=== PATIENT | male | born 1960 | race Caucasian/White ===

== ENCOUNTER 2019-12-17 04:06 | Inpatient (IN) | payer MEDICAID ==
[2019-12-17] VITALS (16 sets, daily range): BP systolic 127–164; BP diastolic 62–102
[~2019-12-17] VITALS: Ht 175.3 cm; Wt 132.0 kg
[~2019-12-17 04:06] MED LIST: ARMOUR THYROID300 MG; CONSTULOSE10 GM/152; FUROSEMIDE 40 M40 MG PO; GENERLAC; GLUCOPHAGE XR500 MG; K-DUR10 ME1; LANTUS100 UNIT/M SUBQ; NOVOLOG100 UNIT/1 SUBQ; OXYCODONE HCL20 M1 PO; OXYCODONE HCL5 M1; PEGASYS180 MCG/1; PRILOSEC 20 MG20 MG PO; REBETOL200 MG; SPIRONOLACTONE50 MG PO; SYNTHROID175 MCG PO; TOPROL XL25 MG; ZOFRAN ODT4 MG DISSOLVE
[2019-12-17 04:50] LABS: ABSOLUTE EOSINOPHILS 0.1 thou/uL (0.0-0.7); ABSOLUTE LYMPHOCYTES 0.8 thou/uL (0.8-5.3); ABSOLUTE MONOCYTES 0.4 thou/uL (0.0-1.2); ABSOLUTE NEUTROPHILS 2.3 thou/uL (1.6-8.1); EOSINOPHILS 3.3 %; HEMATOCRIT 41.4 % (42.0-52.0); LYMPHOCYTES 20.8 %; MCH 32.2 pg (26.0-34.0); MCHC 33.9 g/dL (28.0-37.0); MCV 95.1 fL (80.0-100.0); MONOCYTES 10.9 %; MPV 8.5 fl. (7.2-11.1); NUCLEATED RBCS 0 /100WBC; PLATELET COUNT* 112 thou/uL (150-400); RBC 4.36 mil/uL (4.50-6.00); RDW-CV 15.3 % (10.5-14.5); WBC 3.7 thou/uL (4.0-11.0)
[2019-12-17 05:02] LABS: PROTIME 10.2 Seconds (9.20-11.50)
[2019-12-17 05:12] LABS: CALCIUM 8.4 mg/dL (8.5-10.1); CREATININE 1.2 mg/dL (0.6-1.3); POTASSIUM 4.3 mmol/L (3.5-5.1)
[2019-12-17 05:19] LABS: ALBUMIN 3.1 g/dL (3.4-5.0); MAGNESIUM 1.9 mg/dL (1.8-2.4); TOTAL BILIRUBIN 0.5 mg/dL (<0.1-1.0); TOTAL PROTEIN 7.1 g/dL (6.4-8.2)
[2019-12-17] MEDS ORDERED: EZALLOR SPRINKL20 MG PO (05:23)
[2019-12-17] MEDS ORDERED: HORIZANT600 MG PO (05:23)
[2019-12-17] MEDS ORDERED: LINZESS145 MCG PO (05:23)
[2019-12-17] MEDS ORDERED: FUROSEMIDE 20 M20 MG PO (05:24)
[2019-12-17] MEDS ORDERED: METHOCARBAMOL750 MG PO (05:24)
[2019-12-17] MEDS ORDERED: XIFAXAN550 M1 PO (05:25)
[2019-12-17] MEDS ORDERED: VICTOZA0.6 MG/0.1 SUBQ (05:26)
[2019-12-17] MEDS ORDERED: KRISTALOSE20 GM PO (05:26)
[2019-12-17] MEDS ORDERED: ROXICODONE5 MG PO (08:07)
--- NOTE | 2019-12-17 10:57 | EKG ---
[place] [address] ELECTROCARDIOGRAM REPORT Name: ANIYAH SCHMIDTVIN Room: [address] ADM IN M.R.#: [id number] Admission: 12/17/19 Attend Phys: Jason Epstein, Discharge: Date of : 58 Date of Service: 12/17/19 0410 Report #: [id number] THIS REPORT FOR: //name// [facility] ED Test Date: 2019-12-17 Test Time: 04:10:26 Pat Name: VIANNEY SCHMIDT Department: Room: [facility] Gender: M Superintendent Schools: RIA : 1960 Requested By: Marika Renae Order Number: [id number] MD: Cy Hook Measurements Intervals [place] Rate: 76 P: 38 AR: 174 QRS: -61 QRSD: 102 T: 16 QT: 400 QTc: 450 Interpretive Statements Sinus rhythm Left anterior fascicular block Probable anteroseptal infarct, old Baseline wander in lead(s) II,III,aVF No previous ECG available for comparison Electronically Signed On 12-17-2019 10:56:17 CDT by Cy Hook [email or web address] <ELECTRONICALLY SIGNED> By: Cy Hook MD, [facility] 12/17/19 1056 0410 0410 Cy Hook MD, [facility] /EPI
--- NOTE | 2019-12-17 13:37 | CARD ---
[address] [address] CARDIAC CATH REPORT Name: VIANNEY SCHMIDT Room: [facility] IN ..#: [id number] Admission: 12/17/19 Attend Phys: Jason Epstein MD Discharge: Date of : 58 Report #: [id number] THIS REPORT FOR: //name// cc: ROMÁN Grigsby family physician/PCP ROMÁN Grigsby family physician/PCP ~ APPROVED REPORT Study performed: 12/17/2019 10:43:38 Patient Details Patient Status: In-Patient Room #: 228 The patient is a 59 year-old male Event Personnel Cy Hook Science Interpreter, Rosalino Mehta RN Financial Assistance Advisor, Dwain Barrera Monitor, Víctor Jacobs RTR Scrub Procedures Performed cardiac cath Indication Chest pain Risk Factors Obesity, Diabetes Procedure Narrative The patient was brought electively to the Cardiac Catheterization Laboratory and was prepped and draped in a sterile manner. The right wrist was infiltrated with 1% Lidocaine subcutaneous anesthesia. A Slender Glidesheath sheath was inserted into the RRA. Coronary angiography was performed using coronary diagnostic catheters. The right coronary system was accessed and visualized with a JR4 catheter. The left coronary system was accessed and visualized with a JL4.0 catheter. The left ventricle was accessed and visualized with a Angled PIG catheter. Left ventriculogram was performed in CRUZ projection. Closure device was deployed with a 6 Fr Vasc-Band XLng 29cm. The patient tolerated the procedure well and there were no complications associated with the procedure. There was no hematoma. Intraoperative Conscious Sedation Sedation start time: 1144 Case end Time: 1209 Fluoro Time: 4.5 [place] [address] CARDIAC CATH REPORT Name: BRAYANVIANNEY Room: [address] IN [facility]#: [id number] Admission: 12/17/19 Attend Phys: Jason Epstein MD Discharge: Date of : 58 Report #: [id number] Dose: DAP 1133 cGycm2 65.8 mGy Contrast Type and Amount: Visipaque 70 ml Coronary Angiography The patient's coronary anatomy is co- dominant. [place] Artery Percent Stenosis Left Main: 0 % Prox LAD: 0 % Mid/Distal LAD: 30 % Circumflex: 0 % RCA: 30 % Ramus: % Left Ventriculography The left ventricular ejection fraction is estimated to be 60-65%. Left ventricular wall motion abnormalities are not present. There is no mitral insufficiency. Hemodynamics The aortic pressure is 119/55 mmHg with a mean of 81 mmHg. The left ventricular pressure is 126/10 mmHg with a mean of mmHg. The left ventricular end diastolic pressure is 14 mmHg. There was no gradient across the aortic valve upon pullback. Pullback from the left ventricle to the aorta revealed no gradient across the aortic valve. Conclusion 1. minimal cad noted 2. LVEF 60-65% 3. suspect noncardiac chest pain Recommendations Aggressive Medical Therapy <ELECTRONICALLY SIGNED> By: Cy Hook MD, [facility] 12/17/195 34 34Damichael Hook MD, [facility] /INF
--- NOTE | 2019-12-17 15:17 | CON ---
[address] [address] CONSULTATION Name: VIANNEY SCHMIDT Room: [address] IN M.R.#: [id number] Admission: 12/17/19 Attend Phys: Jason Epstein MD Discharge: Date of : 58 Report #: [id number] THIS REPORT FOR: //name// cc: ROMÁN Grigsby family physician/PCP ROMÁN - Calista family physician/PCP ~ THIS REPORT FOR: //name// CC: ROMÁN physician/PCP Jason Epstein DATE OF SERVICE: 12/17/2019 CARDIOLOGY CONSULTATION HISTORY OF PRESENT ILLNESS: The patient is a 59-year-old white male who I was asked to see in the hospital today after he complained of chest pain. The patient states that he was at a construction site years ago in [place], [place] and told he had a heart attack. He had a heart catheterization, apparently no stents were placed. He has also had a heart catheterization at [facility]. Again, no stents were placed. He is not very active at this time. He was doing well until this morning. He was at home and vacuuming. He then felt short of breath with some chest tightness and left arm pain. He took a nitroglycerin that seemed to help. His drove him to the hospital and he was admitted for further evaluation and treatment. He denied the pain being related to food. He has had no fever, cough, bleeding. Denied trauma to his chest. He does get short of breath when he exerts himself. He has had no palpitations or syncope. He does have chronic edema. PAST MEDICAL HISTORY: He has had a cholecystectomy, appendectomy. He has a history of cirrhosis, was treated for hepatitis C in the past. He has a history of diabetes. He has a diagnosis of neuropathy. MEDICATIONS: Consist of spironolactone, Synthroid, insulin, Crestor, Neurontin, Lasix, Victoza. ALLERGIES: He has no known drug allergies. FAMILY HISTORY: His mother had heart disease. SOCIAL HISTORY: He is . He and his live in [place], [place]. 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 He has a history of smoking. He is now using Chantix in an effort to stop smoking. Drinks beer occasionally. REVIEW OF SYSTEMS: He is overweight, 5 feet 9 inches, and 260 pounds. He denies snoring at night. No history of stroke, kidney disease, peptic ulcer in the past. No cancer. [place] [address] CONSULTATION Name: VIANNEY SCHMIDT Room: [address] IN [facility]#: [id number] Admission: 12/17/19 Attend Phys: Jason Epstein MD Discharge: Date of : 58 Report #: [id number] PHYSICAL EXAMINATION: GENERAL: Revealed a large middle-aged male, lying in bed, appeared in no acute distress. VITAL SIGNS: He had a blood pressure 120/80, pulse 70, he is afebrile. HEENT: He was anicteric. Conjunctivae are pink. Mucous membranes moist. NECK: Veins do not appear distended. No carotid bruits. CHEST: Clear to auscultation. CARDIOVASCULAR: Regular rate and rhythm. No murmur. ABDOMEN: Obese. EXTREMITIES: Had trace edema. Dorsalis pedis pulse 2+ bilaterally. SKIN: Warm and dry. NEUROLOGIC: Nonfocal. PSYCHIATRIC: Mood is appropriate. LABORATORY DATA: His ECG done in the Emergency Room shows sinus rhythm, left anterior fascicular block, evidence of previous anterior infarction. His chest x-ray, cardiomegaly, clear lung quezada. Sodium 135, BUN 14, creatinine 1.2. His troponin 0.06. White blood cell count 3.7 and hemoglobin 14. IMPRESSION AND RECOMMENDATIONS: 1. Unstable angina. Previous coronary artery disease. Recommend cardiac catheterization. 2. Diabetes. 3. Hyperlipidemia. The patient is on a statin drug. 4. History of hepatitis C and cirrhosis. The patient followed by GI. 5. Previous tobacco abuse. 6. Obesity. 7. Neuropathy. 8. Previous peptic ulcer disease with previous surgery. <ELECTRONICALLY SIGNED> By: Cy Hook MD, FACC 12/17/19 1517 0930 [id number] Hook MD, FACC /nt
[2019-12-18] VITALS: BP 129/80
[2019-12-18 04:00] VITALS: BP 143/78
[2019-12-18 08:00] VITALS: BP 144/72
[2019-12-18] MEDS ORDERED: PAIN RELIEVER500 MG PO (10:15)
[2019-12-18] MEDS ORDERED: NEURONTIN600 MG PO (10:15)
[2019-12-18] MEDS ORDERED: KEFLEX500 M1 PO (10:15)
[2019-12-18] MEDS ORDERED: ROXICODONE15 M1 PO (10:15)
[2019-12-18 10:57] VITALS: BP 144/72
== END 2019-12-18 12:47 | disposition home or self-care (01) | DRG 287 ==
LOC: M.ERS 04:06 → M.TBA-ER 06:15 → M.2W 08:31
PROVIDERS: Emergency Medicine; ADMIT Internal Medicine
DX: I25.110 Atherosclerotic heart disease of native coronary artery with unstable angina pectoris (principal); L03.119 Cellulitis of unspecified part of limb; Z68.41 Body mass index [BMI] 40.0-44.9, adult; K74.60 Unspecified cirrhosis of liver; F32.9 Major depressive disorder, single episode, unspecified; I50.9 Heart failure, unspecified; E11.42 Type 2 diabetes mellitus with diabetic polyneuropathy; E78.5 Hyperlipidemia, unspecified; E66.9 Obesity, unspecified; I11.0 Hypertensive heart disease with heart failure; F17.210 Nicotine dependence, cigarettes, uncomplicated; M47.9 Spondylosis, unspecified; M19.012 Primary osteoarthritis, left shoulder; M19.011 Primary osteoarthritis, right shoulder; Z79.82 Long term (current) use of aspirin; I25.2 Old myocardial infarction; Z90.49 Acquired absence of other specified parts of digestive tract; Z86.19 Personal history of other infectious and parasitic diseases; Z87.11 Personal history of peptic ulcer disease; Z79.899 Other long term (current) drug therapy

== ENCOUNTER 2020-01-02 19:04 | Emergency (ER) | payer MEDICAID ==
[~2020-01-02] VITALS: Ht 175.3 cm; Wt 117.9 kg
[~2020-01-02 19:04] MED LIST changes: +EZALLOR SPRINKL20 MG PO; +FUROSEMIDE 20 M20 MG PO; +HORIZANT600 MG PO; +KEFLEX500 M1 PO; +KRISTALOSE20 GM PO; +LINZESS145 MCG PO; +METHOCARBAMOL750 MG PO; +NEURONTIN600 MG PO; +PAIN RELIEVER500 MG PO; +ROXICODONE15 M1 PO; +ROXICODONE5 MG PO; +VICTOZA0.6 MG/0.1 SUBQ; +XIFAXAN550 M1 PO
[2020-01-02] MEDS ORDERED: LYRICA 50 MG50 MG PO (20:58)
[2020-01-02] MEDS ORDERED: FLEXERIL PO ×2 (20:58→21:12)
[2020-01-02 21:22] VITALS: BP 142/84
== END 2020-01-02 21:29 | disposition home or self-care (01) ==
LOC: M.ERS 19:04
DX: M25.512 Pain in left shoulder (principal); R60.0 Localized edema; I11.0 Hypertensive heart disease with heart failure; I50.9 Heart failure, unspecified; E11.9 Type 2 diabetes mellitus without complications; F17.210 Nicotine dependence, cigarettes, uncomplicated; Z86.19 Personal history of other infectious and parasitic diseases; Z79.4 Long term (current) use of insulin

== ENCOUNTER 2020-01-11 18:37 | Inpatient (IN) | payer MEDICAID ==
[~2020-01-11] VITALS: Ht 175.3 cm; Wt 127.7 kg
[~2020-01-11 18:37] MED LIST changes: +FLEXERIL PO; +LYRICA 50 MG50 MG PO
[2020-01-11 18:44] VITALS: BP 169/85
[2020-01-11 19:23] LABS: PCO2 28.3 mmHg (35.0-45.0); PO2 81.9 mmHg (75.0-100.0); pH 7.362 (7.340-7.450)
[2020-01-11 19:26] LABS: ABSOLUTE LYMPHOCYTES 0.5 thou/uL (0.8-5.3); ABSOLUTE MONOCYTES 0.7 thou/uL (0.0-1.2); BASOPHILS 0.2 %; EOSINOPHILS 0.1 %; HEMATOCRIT 47.2 % (42.0-52.0); HEMOGLOBIN 15.9 gm/dL (14.0-18.0); LYMPHOCYTES 7.1 %; MCH 32.4 pg (26.0-34.0); MCHC 33.8 g/dL (28.0-37.0); MCV 95.8 fL (80.0-100.0); MONOCYTES 9.1 %; MPV 9.2 fl. (7.2-11.1); NUCLEATED RBCS 0 /100WBC; PLATELET COUNT* 133 thou/uL (150-400); POLYS 83.5 %; RBC 4.92 mil/uL (4.50-6.00); RDW-CV 14.9 % (10.5-14.5); WBC 7.2 thou/uL (4.0-11.0)
[2020-01-11 19:37] LABS: APTT 24.7 Seconds (25.0-31.3); PROTIME 10.4 Seconds (9.20-11.50)
[2020-01-11 19:46] LABS: ALBUMIN 3.2 g/dL (3.4-5.0); ALKALINE PHOSPHATASE 146 U/L (46-116); ANION GAP 15 mmol/L (7-16); BUN 21 mg/dL (7-18); CALCIUM 8.9 mg/dL (8.5-10.1); CHLORIDE 94 mmol/L (98-107); CO2 20 mmol/L (21-32); CREATININE 1.6 mg/dL (0.6-1.3); MAGNESIUM 1.8 mg/dL (1.8-2.4); NT-PRO BRAIN NAT PEPTIDE 277 pg/mL (<300); POTASSIUM 4.4 mmol/L (3.5-5.1); SGOT 26 U/L (15-37); SGPT 27 U/L (30-65); SODIUM 129 mmol/L (136-145); TOTAL BILIRUBIN 0.6 mg/dL (<0.1-1.0); TOTAL PROTEIN 7.5 g/dL (6.4-8.2)
[2020-01-11 19:47] LABS: GLUCOSE 597 mg/dL (70-99)
[2020-01-11 20:53] LABS: URINE BILIRUBIN NEGATIVE (Negative); URINE BLOOD TRACE (Negative); URINE CLARITY CLEAR; URINE COLOR YELLOW; URINE GLUCOSE-RANDOM 3+ (Negative); URINE KETONES NEGATIVE (Negative); URINE LEUKOCYTES-REFLEX NEGATIVE (Negative); URINE NITRITE-REFLEX NEGATIVE (Negative); URINE PROTEIN TRACE (Negative); URINE UROBILINOGEN 0.2 E.U./dl (0.2-1.0)
--- NOTE | 2020-01-11 21:28 | NUR ---
INSULIN DRIP STARTED AT 8UNITS/HR. CHECK PAPER CHARTING FOR CONTINUM DOCUMENTATION
[2020-01-11 22:16] VITALS: BP 154/75
[2020-01-11 22:33] VITALS: BP 129/65
[2020-01-11 23:00] VITALS: BP 125/73
[2020-01-11 23:58] LABS: AMP/METHAMP Negative (Negative); BARBITURATES Negative (Negative); BENZODIAZEPINES Negative (Negative); COCAINE Negative (Negative); METHADONE Negative (Negative); OPIATES Negative (Negative); PCP Negative (Negative); THC Negative (Negative)
[2020-01-12] VITALS (10 sets, daily range): BP systolic 124–158; BP diastolic 63–90
[2020-01-12 03:40] LABS: CALCIUM 8.6 mg/dL (8.5-10.1); CREATININE 1.2 mg/dL (0.6-1.3); MAGNESIUM 1.7 mg/dL (1.8-2.4); POTASSIUM 3.8 mmol/L (3.5-5.1)
[2020-01-12 07:24] LABS: HEMATOCRIT 41.2 % (42.0-52.0); HEMOGLOBIN 14.1 gm/dL (14.0-18.0); MCHC 34.2 g/dL (28.0-37.0); MCV 93.5 fL (80.0-100.0); MPV 8.1 fl. (7.2-11.1); RBC 4.41 mil/uL (4.50-6.00); RDW-CV 14.8 % (10.5-14.5); WBC 3.9 thou/uL (4.0-11.0)
[2020-01-12 07:32] LABS: CALCIUM 8.2 mg/dL (8.5-10.1); CREATININE 1.1 mg/dL (0.6-1.3)
--- NOTE | 2020-01-12 07:44 | NUR ---
PATIENT TO 006 FROM ED AT 2224. INSULIN GTT STOPPED AT [address] CASILLAS. PATIENT C/O LEG PAIN FOR THE MAJORITY OF THE SHIFT, ALLEVIATED WITH MORPHINE. PATIENT EXHIBITS A LACK OF KNOWLEDGE WHEN EXPLAINING DIABETIC CONTROL AND INSULIN ADMINISTRATION. BOTH THE PATIENT AND HIS SPOUSE REQUIRE EDUCATION ON THIS MATTER.
--- NOTE | 2020-01-12 13:34 | NUR ---
SW called and spoke with Rosa for ICU rounds. Pt med surg status. SW called pt to complete initial assessment, introduce self, and SW role. Pt lives at home with . Pt explained that they are moving into an apt from [place]. Pt trying to work with [employer] to find a bed as pt cannot get back up off of the ground and the air mattress they were using was not working out well for him. Pt believes she will be able to have a better bed tomorrow. Pt follows with [facility] doctors. Pt said that pt has hx of cellulitis and she is hopeful a doctor would prescribe 10 days of Keflex vs 7 because she believes this might help after dc. 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 SW to continue to follow to assist with safe dc planning.
--- NOTE | 2020-01-12 14:12 | EKG ---
[place] [address] ELECTROCARDIOGRAM REPORT Name: VIANNEY SCHMIDT Room: [address] IN ..#: [id number] Admission: 01/11/20 Attend Phys: Philip Livingston, Discharge: Date of : 58 Date of Service: 01/11/20 1855 Report #: [id number] THIS REPORT FOR: //name// [facility] ED Test Date: 2020-01-11 Test Time: 18:55:43 Pat Name: VIANNEY SCHMIDT Department: Room: [facility] Gender: M Vice President Planning: [place] : 1960 Requested By: Britney Huang Order Number: [id number] MD: Cy Hook Measurements Intervals [place] Rate: 103 P: 7 CO: 192 QRS: -63 QRSD: 104 T: 27 QT: 368 QTc: 482 Interpretive Statements Sinus tachycardia Left anterior fascicular block Probable anteroseptal infarct, old Compared to ECG 12/17/2019 04:10:26 Sinus rhythm no longer present Myocardial infarct finding still present Electronically Signed On 01-12-2020 14:10:23 CDT by Cy Hook [email or web address] <ELECTRONICALLY SIGNED> By: Cy Hook MD, FACC 01/12/20 1410 1855 1855 Cy Hook MD, [facility] /EPI
--- NOTE | 2020-01-12 15:37 | NUR ---
Patient remains A&O x 4, pleasant and cooperative with cares. C/O pain multiple times in feet and legs. Pain medication regiman does help. Patient up to BSC for large BM. adequate urine output noted. Blood gulcose is stable however patient states that he will have his bring him fast food if he doesn't get what he likes from the kitchen. Patient educated on being able to call kitchen and order what he likes off of his carb control menu. researcher called and spoke with patient's about diet and the importance of it. No further concerns at this time. Will continue to monitor and care per plan of care.
--- NOTE | 2020-01-12 15:55 | CON ---
[address] [address] CONSULTATION Name: VIANNEY SCHMIDT Room: [address] IN M.R.#: [id number] Admission: 01/11/20 Attend Phys: Philip Livingston MD Discharge: Date of : 58 Report #: [id number] THIS REPORT FOR: //name// cc: [facility] - [facility] physician unknown [facility] - Clinic physician unknown ~ THIS REPORT FOR: //name// CC: Philip Livingston [facility] unknown DATE OF SERVICE: 01/12/2020 INFECTIOUS DISEASE CONSULTATION ATTENDING PHYSICIAN: Philip Livingston MD REASON FOR EVALUATION: Bilateral lower extremity inflammatory eruption in setting of a diabetic with uncontrolled sugars greater than 500 with marked lactic acidemia and likely early sepsis. HISTORY OF PRESENT ILLNESS: Chart reviewed. The patient examined. This is a 59-year-old gentleman with known history of diabetes mellitus who was admitted through the Emergency Room on 01/11/2020. He was found to have markedly elevated blood sugars greater than 500. He noted he had over the course of last week or so increasing pain associated with his bilateral lower extremities. He has a history of chronic edema. He has marked hyperpigmentation. He describes what sounds like arterial occlusive disease as well as venous stasis insufficiency with dermatitis. He denies significant amount of systemic illness in terms of fevers or chills. He has had a mild cough. He states that he has not had significant gastrointestinal-related complaints. He does have known cirrhosis, history of hepatitis C that has been treated, and also diffuse vasculopathy. He is empirically started on antibiotics including vancomycin and ceftriaxone. ALLERGIES: None known. CURRENT MEDICATIONS: 1. Lactulose. 2. Rifaximin. 3. Furosemide. 4. Methocarbamol. 5. Levothyroxine. 6. Pantoprazole. 7. Spironolactone. 8. Enoxaparin. 9[place] [address] CONSULTATION Name: VIANNEY SCHMIDT Room: [address]#: [id number] Admission: 01/11/20 Attend Phys: Philip Livingston MD Discharge: Date of : 58 Report #: [id number] 10. Pregabalin. 11. Gabapentin. 12. Vancomycin. 13. P.r.n. analgesics, antiemetics. 14. Ceftriaxone. PAST MEDICAL HISTORY: 1. Diabetes mellitus type 2. This has been complicated by diffuse vasculopathy. 2. He has known coronary artery disease. 3. History of peripheral neuropathy. 4. Venous stasis insufficiency with dermatitis with recurrent inflammation. 5. History of cirrhosis. 6. Treated hepatitis C. 7. Depression. 8. Has cardiomyopathy, history of congestive heart failure. Does require supplemental oxygen at times on chronic basis. SOCIAL HISTORY: Long time cigarette smoker. No illicit drug use. Does have fairly regular ethanol, although not excessive. FAMILY HISTORY: Noncontributory. REVIEW OF SYSTEMS: As above. A 10-point review of systems otherwise unremarkable. PHYSICAL EXAMINATION: GENERAL: He is alert, cooperative, appropriate, in mild to moderate distress. VITAL SIGNS: Temperature 98.6, pulse 58, respirations 16, blood pressure 141/89. SKIN: Warm, dry. HEENT: Normocephalic. Extraocular muscles intact. NECK: Supple. LUNGS: Diminished breath sounds. Few scattered crackles at the bases. HEART: Regular. I do not appreciate a murmur. Borderline bradycardic. ABDOMEN: Obese, distended, nontender. EXTREMITIES: Bilateral lower extremities have changes consistent with chronic dermopathy, likely on the basis of venous stasis insufficiency. He does have changes that suggests chronic ischemia as well. Lack of hair on the lower extremities. He does have peripheral pulses that are palpable. Initial glucose greater than 500. LABORATORY DATA: ABGs: pH 7.362, pCO2 of 28.3, pO2 of 81.9 and that was on the room air. CBC: White count of 7.2, H and H 15.9 and 47.2, platelets of 133. Troponin less than 0.06. Lactic acid initially 6.4, more recently trended down serially 1.8. CRP of 5.0. Glucose 144. Blood [place] [address] CONSULTATION Name: VIANNEY SCHMIDT Room: [address] IN [facility]#: [id number] Admission: 01/11/20 Attend Phys: Philip Livingston MD Discharge: Date of : 58 Report #: [id number] Electrolytes: Sodium 137, potassium 4.0, chloride 103, bicarbonate is 28, anion gap of 6, BUN and creatinine 17 and 1.1. Most recent CBC, he has leukopenia. White count of 3.9 with thrombocytopenia of 87. H and H 14.1 and 41.2. ASSESSMENT: Bilateral lower extremities inflammatory eruption. I think it is likely multifactorial, certainly a component of venous stasis insufficiency with dermatitis. Cannot entirely exclude an ischemic component as well. I think given the bilaterality of it, which is somewhat usual to have it cellulitic, I do think there is possibility that this may be the case. We will continue empiric antimicrobial therapy. He notes he has been on cephalexin intermittently. He notes good response, likely susceptible Staph aureus or streptococcus. We will see how he does clinically. Did discussed elevation and compression. We will pursue the latter if the arterial Dopplers suggest adequate perfusion. We will monitor expectantly and add incentive spirometry. <ELECTRONICALLY SIGNED> By: Jayden Vargas MD 01/12/20 1555 1355 [id number] Vargas MD /nt
--- NOTE | 2020-01-12 16:53 | NUR ---
PT ARRIVED TO FLOOR FROM ICU ABOUT 1640. BOTH IVs PATENT. PT STABLE. UP AD JOHANNA. ON RA. BM TODAY. BILATERAL CELLULITIS ON LEGS, TUBAGRIP WILL BE PLACED AFTER US COMPLETE. ON 2LO2 HS. PAIN CONTROLLED. DENIED NAUSEA/VOMITING. CALL LIGHT WITHIN REACH. PT SETTLED IN ROOM. WILL CONTINUE TO MONITOR.
--- NOTE | 2020-01-13 04:36 | NUR ---
PATIENT HAS SLEPT OFF AND ON DURING THE NIGHT. VSS ON RA. PAIN WELL CONTROLLED IN DAR LOWER EXTREMITIES. MEDICATIONS GIVEN ORDERED AND CHARTED. IV IN RIGHT AC-SL. IV IN LEFT FOREARM-SL. IV ABT GIVEN WITHOUT ANY ADVERSE SIDE EFFECTS NOTED. PATIENT INSTRUCTED TO USE CALL LIGHT WHEN NEEDING ASSISTANCE. HOURLY ROUNDS MADE. WILL CONTINUE WITH PLAN OF CARE AND NURSING TO MONITOR.
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
== END 2020-01-13 07:16 | disposition left against medical advice (07) | DRG 871 ==
LOC: M.ERS 18:37 → M.TBA-ER 20:44 → M.ICU 20:44 → M.3W 01-12 16:48
PROVIDERS: Emergency Medicine; Personal Emergency Response Attendant; ADMIT Internal Medicine
DX: A41.9 Sepsis, unspecified organism (principal); E11.00 Type 2 diabetes mellitus with hyperosmolarity without nonketotic hyperglycemic-hyperosmolar coma (NKHHC); N17.0 Acute kidney failure with tubular necrosis; L03.119 Cellulitis of unspecified part of limb; I50.20 Unspecified systolic (congestive) heart failure; K74.60 Unspecified cirrhosis of liver; F32.9 Major depressive disorder, single episode, unspecified; E11.65 Type 2 diabetes mellitus with hyperglycemia; I25.10 Atherosclerotic heart disease of native coronary artery without angina pectoris; E11.42 Type 2 diabetes mellitus with diabetic polyneuropathy; F17.210 Nicotine dependence, cigarettes, uncomplicated; I11.0 Hypertensive heart disease with heart failure; Z96.641 Presence of right artificial hip joint; G89.29 Other chronic pain; Z53.29 Procedure and treatment not carried out because of patient's decision for other reasons; I25.2 Old myocardial infarction; Z79.891 Long term (current) use of opiate analgesic